=== PATIENT | female | born 1980 | race African-American/Black ===

== ENCOUNTER 2020-06-07 17:01 | Outpatient (CLI) | payer OTHER, SELFPAY ==
--- NOTE | ~2020-06-07 | MM_ITS ---
EXAMINATION: MM screening sangeeta BI w quentin HISTORY: Screening TECHNIQUE: Craniocaudal and mediolateral oblique 3-D tomosynthesis images were obtained and synthetic 2-D images were generated. CAD analysis was submitted and interpreted. COMPARISON: No prior mammogram is available for comparison at this institution. BREAST PARENCHYMAL COMPOSITION: There are scattered areas of fibroglandular density. FINDINGS: There is no evidence of suspicious mass, calcification, or architectural distortion to sugg est malignancy in either breast. There has been no suspicious interval change. IMPRESSION: 1. No mammographic evidence of malignancy. 2. Recommend routine screening mammography in one year. BI-RADS Category 1: Negative Reviewed, dictated and finalized at location A.
== END 2020-06-07 17:02 | disposition home or self-care (01) ==
LOC: ANHIMG 17:09
DX: Z12.31 Encounter for screening mammogram for malignant neoplasm of breast (principal)
CPT/HCPCS: 77063; 77067

== ENCOUNTER 2022-04-10 16:11 | Emergency (ER) | payer OTHER, SELFPAY ==
[2022-04-10 16:15] VITALS: BP 186/98; PULSE 105; RESP 16; TEMP 36.6; O2SAT 100
--- NOTE | 2022-04-10 16:42 | ED.GENADULT ---
HPI - General Adult General Chief complaint: Upper Respiratory Infection Stated complaint: FEVER Time Seen by Provider: 04/10/22 16:24 History of Present Illness HPI narrative: 42-year-old female presents to the emergency room symptoms indicative of COVID. She is got body aches as well as chills and fevers. She got a headache. She has nausea vomiting as well as cough congestion runny nose. She did get a full vaccination series but did not get a booster. Patient actually went to [facility] earlier today and had a COVID test at 10:00 this morning does not have the results of that test at this point. Review of Systems Review of Systems: CONSTITUTIONAL: Experiencing chills and fevers EYES: Denies visual changes, redness, or discharge. ENT: Having nasal congestion and rhinorrhea. Denies sore throat. CARDIOVASCULAR: Denies chest pain, palpitations, or edema. RESPIRATORY: Having a nonproductive cough GASTROINTESTINAL: Denies abdominal pain, nausea, vomiting, or diarrhea. GENITOURINARY: Denies dysuria or hematuria. SKIN: Denies rash or itching. MUSCULOSKELETAL: Denies back pain, joint pain, or myalgia. NEUROLOGIC: Denies headache, numbness, or weakness. PSYCHIATRIC: Denies anxiety or depression. [facility] Past Medical History Medical History Hypertension Surgical History Surgical History No pertinent past surgical history Social History Social History Smoking status: Current every day smoker Tobacco type: cigarettes Alcohol intake: current Alcohol use details: Drinks liquor daily Exam Narrative: APPEARANCE: Well appearing, no pain or distress, well-nourished. Head normocephalic and atraumatic. EYES: PERRLA/EOMI, conjunctivae very clear. NOSE: Nasal rhinorrhea EARS:TMS clear [place], with good light reflex. THROAT: Pharynx clear, no exudate. NECK: Supple. No adenopathy, no masses. RESPIRATORY: Airway patent, respirations nonlabored. Clear to auscultation bilaterally, no rales, rhonchi, wheezing. CARDIOVASCULAR: Regular rate and rhythm without murmurs, rubs, or gallops. ABDOMINAL: Soft, nontender, nondistended, no hepatosplenomegaly Musculoskeletal: Moves all extremities. Strength/ROM intact, No edema, No calf tenderness. NEURO: Alert. Cranial nerves II through XII intact. Normal gait. Good coordination. Nonfocal examination. SKIN:: Warm, dry. Normal Color PSYCHIATRIC: Normal affect/mood, normal interaction Course Vital Signs Vital signs: Vital Signs Temperature 98 F 04/10/22 16:15 Pulse Rate 105 H 04/10/22 16:15 Respiratory Rate 16 04/10/22 16:15 Blood Pressure 186/98 H 04/10/22 16:15 Pulse Oximetry 100 04/10/22 16:15 Temperature 98 F 04/10/22 16:15 Pulse Rate 105 H 04/10/22 16:15 Respiratory Rate 16 04/10/22 16:15 Blood Pressure 186/98 H 04/10/22 16:15 Pulse Oximetry 100 04/10/22 16:15 Medical Decision Making Vital Signs Vital Signs: Vital Signs Temperature 98 F 04/10/22 16:15 Pulse Rate 105 H 04/10/22 16:15 Respiratory Rate 16 04/10/22 16:15 Blood Pressure 186/98 H 04/10/22 16:15 Pulse Oximetry 100 04/10/22 16:15 Temperature 98 F 04/10/22 16:15 Pulse Rate 105 H 04/10/22 16:15 Respiratory Rate 16 04/10/22 16:15 Blood Pressure 186/98 H 04/10/22 16:15 Pulse Oximetry 100 04/10/22 16:15 Discharge Plan Discharge Clinical Impression: Viral infection Patient Disposition: Home, Self-Care Condition: Stable Instructions: Viral Syndrome (ED) Additional Instructions: Tylenol or Advil as needed. DayQuil and NyQuil. Do not return to work until after you have been afebrile for 24 hours and have a negative COVID test. Follow-up/Referrals: Caesar,Markus Crowe NP [Primary Care Provider] -
[2022-04-10 17:19] VITALS: BP 150/107; PULSE 96; RESP 22; O2SAT 98
[2022-04-10 17:27] VITALS: BP 150/107; PULSE 93; RESP 22; O2SAT 99
== END 2022-04-10 17:32 | disposition home or self-care (01) ==
LOC: ANHED 16:58
PROVIDERS: Emergency Provider Emergency Medicine; PCP Nurse Practitioner Family
DX: B34.9 Viral infection, unspecified (principal); Z20.822 Contact with and (suspected) exposure to COVID-19; I10 Essential (primary) hypertension; F17.210 Nicotine dependence, cigarettes, uncomplicated
CPT/HCPCS: 99283

== ENCOUNTER 2022-07-12 10:19 | Outpatient (CLI) | payer OTHER, SELFPAY ==
--- NOTE | ~2022-07-12 | MM_ITS ---
EXAMINATION: MM screening sangeeta BI w quentin HISTORY: Screening mammogram TECHNIQUE: Craniocaudal and mediolateral oblique 3-D tomosynthesis images were obtained and synthetic 2-D images were generated. CAD analysis was submitted and interpreted. COMPARISON: 06/07/2020 BREAST PARENCHYMAL COMPOSITION: There are scattered areas of fibroglandular density. FINDINGS: There is no suspicious mass, calcification, or architectural distortion to suggest malignan cy in either breast. There has been no suspicious interval change. IMPRESSION: 1. No mammographic evidence of malignancy. 2. Recommend routine screening mammography in one year. BI-RADS Category 1: Negative Reviewed, dictated and finalized at location A.
== END 2022-07-12 10:20 | disposition home or self-care (01) ==
PROVIDERS: PCP Nurse Practitioner Family; Visit Provider Nurse Practitioner Family
DX: Z12.31 Encounter for screening mammogram for malignant neoplasm of breast (principal)
CPT/HCPCS: 77063; 77067

== ENCOUNTER 2023-10-08 16:43 | Emergency (ER) | payer OTHER, SELFPAY ==
--- NOTE | ~2023-10-08 | XR_ITS ---
EXAMINATION: XR abdomen obstructive series DATE: 10/08/2023 17:21 INDICATION: Generalized abdominal tenderness. TECHNIQUE: Upright and supine views of the abdomen on 3 radiographs were obtained. COMPARISON: None. FINDINGS: There are no dilated loops of bowel. There is a small volume of stool in the colon. No free intraperitoneal gas. There is a 5 mm stone in left kidney. IMPRESSION: 1. Normal bowel gas pattern. 2. Left kidney stone. Reviewed, dictated and finalized at location A. ER [facility]
--- NOTE | 2023-10-08 16:51 | ED.ABDPAIN ---
HPI - Abdominal Pain General Chief Complaint: Abdominal Pain Stated Complaint: Abdominal Pain Time Seen by Provider: 10/08/23 17:05 Source: patient Mode of arrival: ambulatory Limitations: no limitations History of Present Illness HPI narrative: Roamna is a 43 year old female patient presenting to the clinic today with complaints of left lower quadrant abdominal pain and nausea. She reports her symptoms started around 1:00 a.m. this morning. Woke up with sharp pain to the lower abdomen. Currently rates her pain a 5/10. States the pain is pretty constant. Last bowel movement was this morning and normal for the patient. She reports that that did relieve some of her discomfort at that time. Also is feeling nauseous-had 1 episode of vomiting up phlegm. No fever or chills. Denies any urinary issues. Noticed slight vaginal discharge is morning without odor. History of tubal ligation. Last menstrual period was 3 weeks ago. Related Data Home Medications Medication Instructions Recorded Confirmed metoprolol succinate 25 mg 25 mg PO BID 04/10/22 10/08/23 tablet,extended release 24 hr Allergies Allergy/AdvReac Type Severity Reaction Status Date / Time Sulfa (Sulfonamide Allergy Other Verified 10/08/23 17:04 Antibiotics) Review of Systems Review of Systems: Pertinent positives per HPI. Patient denies any fever, chills, rash, headache, visual changes, dizziness, cough, shortness of breath, chest pain, palpitations, diarrhea, constipation, or any urinary issues. PMFSH Past Medical History Medical History Hypertension Surgical History Surgical History No pertinent past surgical history Social History Social History Smoking status: Current every day smoker Tobacco type: cigarettes Alcohol intake: current Alcohol use details: Drinks liquor daily Comments At the time of my signature, I reviewed and agree with the nursing past medical, surgical, social, and family history. There is no relevant family history pertinent to the patient complaint. Exam Narrative: General: Well-developed, well nourished, in no apparent distress. Head: Normocephalic, atraumatic. Cardio: Regular rate and rhythm, s1 and s2 normal, no murmur appreciated. Resp: Clear to auscultation bilaterally, no rhonchi, rales, wheezing or rubs. Abdomen: Soft, pliable, nondistended, bowel sounds present in all quadrants, generalized tender to palpation but worse and the left lower quadrant, no organomegly, + left CVAT tenderness. Course Course Emergency Course: Portions of this record may have been created with voice recognition software. Level of Care: Express Care Visit Vital Signs Vital signs: Vital signs reviewed Transfer Transfered to: [facility] Transportation: Other (private car) Transfer rationale: left flank/left abdomen pain- x-ray shows 5mm kidney stone, 1+ blood in urine Accepting physician: Dr. Finney Transfer comments: transfter via private car MDM - Abdominal Pain MDM Narrative Medical decision making narrative: At the time of visit patient is resting comfortably on the exam table. Patient appears to be nontoxic. UA shows 1+ blood, two view abdomen shows a 5 mm kidney stone in the left kidney. Recommend transfer to the ER for further evaluation to determine if patient has a ureterolithiasis. Contacted Venkata-ADDISON at [facility] in [place] and report was given for continuity of care. Dr. Finney accepts patient for transfer. Transfer via private car Differential Diagnosis Differential diagnosis: Likely abdominal pain, acute appendicitis, calculus of kidney, constipation, diverticulitis, endometriosis, gastroenteritis, pancreatitis, small bowel obstruction and other (Ureterolithiasis) Imaging Data Radiologist'
[2023-10-08 16:58] VITALS: BP 177/108; PULSE 111; RESP 16; TEMP 36.9; O2SAT 100
== END 2023-10-08 17:39 | disposition short-term general hospital (02) ==
LOC: EXPCOLL 16:48
PROVIDERS: Emergency Provider Nurse Practitioner Family; PCP Nurse Practitioner Family
DX: R10.32 Left lower quadrant pain (principal); I10 Essential (primary) hypertension; F17.210 Nicotine dependence, cigarettes, uncomplicated
CPT/HCPCS: 74019; 81003; 99213; G0463